=== PATIENT | female | born 1980 | race Hispanic/Latino ===

== ENCOUNTER 2020-08-25 16:19 | Outpatient (CLI) | payer OTHER, SELFPAY | END 2020-08-25 16:20 | disposition home or self-care (01) | LOC: CSHULT 16:19 | PROVIDERS: ATTEND Nurse Practitioner Women's Health | DX: R10.2 Pelvic and perineal pain (principal); N88.8 Other specified noninflammatory disorders of cervix uteri | CPT/HCPCS: 76856 ==